=== PATIENT | male | born 1985 | race Hispanic/Latino ===

== ENCOUNTER 2018-03-19 02:42 | Emergency (ER) | payer OTHER ==
[~2018-03-19] VITALS: Ht 177.8 cm; Wt 70.0 kg
[~2018-03-19 02:42] MED LIST: VISTARIL25 MG OR
[2018-03-19] MEDS ORDERED: LORATADINE10 M1 PO (03:04)
[2018-03-19 04:30] VITALS: BP 95/56
== END 2018-03-19 04:40 | disposition designated cancer center or children's hospital (05) | DRG 605 ==
LOC: ED 02:42
PROC: 0HQCXZZ Repair Left Upper Arm Skin, External Approach (ICD-10-PCS; principal; 2018-03-19)
DX: S51.812A Laceration without foreign body of left forearm, initial encounter (principal); X78.8XXA Intentional self-harm by other sharp object, initial encounter; Y92.149 Unspecified place in prison as the place of occurrence of the external cause

== ENCOUNTER 2019-03-22 23:03 | Emergency (ER) | payer OTHER ==
[~2019-03-22] VITALS: Ht 177.8 cm; Wt 70.0 kg
[~2019-03-22 23:03] MED LIST changes: +LORATADINE10 M1 PO
[2019-03-22 23:28] LABS: HEMATOCRIT 31.7 % (39.0-50.0); HEMOGLOBIN 9.9 g/dl (14.0-18.0); IMMATURE GRANULOCYTES 0.3 % (0.0-5.0); MEAN CORPUSCULAR HGB 26.5 pG CALC (26.0-32.0); MEAN CORPUSCULAR HGB CONC 31.2 g/L CALC (32.0-36.0); NEUT# 3.81 thou/uL (1.82-7.42); RED BLOOD COUNT 3.74 mill/uL (4.70-6.10); RED CELL DISTRI WIDTH 14.6 % (11.5-15.5)
[2019-03-22 23:35] LABS: MEAN CELL VOLUME 84.8 fL CALC (80.0-100.0)
[2019-03-22 23:43] LABS: ALKALINE PHOSPHATASE 107 u/l (38-126); BUN 9 mg/dL (9-20); BUN/CREATININE RATIO 11 (12-20 (CALC)); CHLORIDE 107 mmol/l (95-108); CREATININE 0.8 mg/dL (0.7-1.3); GFR > 60 ML/MIN (>=60 (CALC)); GFR FOR AFR.AMER. > 60 ML/MIN (>=60 (CALC)); POTASSIUM 3.3 mmol/l (3.5-5.1); SGOT/AST 24 u/l (17-59); SODIUM 140 mmol/l (137-146); TOTAL PROTEIN 6.6 g/dL (6.3-8.2)
[2019-03-22 23:44] LABS: ANION GAP 17 (6-22 (CALC)); BILIRUBIN, TOTAL 0.3 mg/dL (0.0-1.4); CARBON DIOXIDE 19 mmol/l (22-30)
[2019-03-22] MEDS ORDERED: FERROUS SULF325 M2 PO (23:55)
[2019-03-22] MEDS ORDERED: DOCUSATE SOD100 M2 PO (23:57)
[2019-03-23] MEDS ORDERED: AMOXICILLIN500 MG PO (01:49)
[2019-03-23 02:21] VITALS: BP 108/61
== END 2019-03-23 02:21 | disposition designated cancer center or children's hospital (05) | DRG 605 ==
LOC: ED 23:03
PROVIDERS: Emergency Medicine
PROC: 0HQEXZZ Repair Left Lower Arm Skin, External Approach (ICD-10-PCS; principal; 2019-03-22)
PROC: 0HQDXZZ Repair Right Lower Arm Skin, External Approach (ICD-10-PCS; 2019-03-22)
DX: S51.812A Laceration without foreign body of left forearm, initial encounter (principal); S51.811A Laceration without foreign body of right forearm, initial encounter; F17.200 Nicotine dependence, unspecified, uncomplicated; X78.8XXA Intentional self-harm by other sharp object, initial encounter; Y92.149 Unspecified place in prison as the place of occurrence of the external cause

== ENCOUNTER 2019-04-14 22:53 | Emergency (ER) | payer OTHER ==
[~2019-04-14] VITALS: Ht 177.8 cm; Wt 70.0 kg
[~2019-04-14 22:53] MED LIST changes: +AMOXICILLIN500 MG PO; -LORATADINE10 M1 PO
[2019-04-15 00:17] VITALS: BP 100/56
== END 2019-04-15 00:17 | disposition designated cancer center or children's hospital (05) | DRG 605 ==
LOC: ED 22:53
PROC: 0HQDXZZ Repair Right Lower Arm Skin, External Approach (ICD-10-PCS; principal; 2019-04-14)
DX: S51.011A Laceration without foreign body of right elbow, initial encounter (principal); F17.200 Nicotine dependence, unspecified, uncomplicated; X78.8XXA Intentional self-harm by other sharp object, initial encounter; Y92.149 Unspecified place in prison as the place of occurrence of the external cause

== ENCOUNTER 2019-04-15 13:16 | Emergency (ER) | payer OTHER ==
[~2019-04-15] VITALS: Ht 177.8 cm; Wt 70.0 kg
[2019-04-15 13:30] VITALS: BP 120/76; BP 120/78
[2019-04-15 14:33] VITALS: BP 120/76
== END 2019-04-15 14:33 | DRG 605 ==
LOC: ED 13:16
PROC: 30233N1 Transfusion of Nonautologous Red Blood Cells into Peripheral Vein, Percutaneous Approach (ICD-10-PCS; principal; 2019-04-15)
PROC: 30233N1 Transfusion of Nonautologous Red Blood Cells into Peripheral Vein, Percutaneous Approach (ICD-10-PCS; 2019-04-15)
DX: S51.012A Laceration without foreign body of left elbow, initial encounter (principal); F32.9 Major depressive disorder, single episode, unspecified; X78.9XXA Intentional self-harm by unspecified sharp object, initial encounter; Y92.149 Unspecified place in prison as the place of occurrence of the external cause; Z91.5 Personal history of self-harm
CPT/HCPCS: P9016

== ENCOUNTER 2019-04-17 23:31 | Emergency (ER) | payer OTHER ==
[~2019-04-17] VITALS: Ht 177.8 cm; Wt 70.0 kg
[2019-04-17] MEDS ORDERED: FERROUS SULF325 M2 PO (23:43)
[2019-04-17] MEDS ORDERED: LORATADINE10 M1 PO (23:43)
[2019-04-17] MEDS ORDERED: DOCUSATE SOD100 M2 PO (23:44)
[2019-04-17] MEDS ORDERED: NORCO1 TA2 PO (23:45)
[2019-04-17] MEDS ORDERED: LEVAQUIN750 MG PO (23:46)
[2019-04-18 00:06] LABS: IMMATURE GRANULOCYTES 0.6 % (0.0-5.0); MEAN CELL VOLUME 85.1 fL CALC (80.0-100.0); MEAN CORPUSCULAR HGB 26.4 pG CALC (26.0-32.0); NEUT# 7.4 thou/uL (1.82-7.42); RED BLOOD COUNT 2.35 mill/uL (4.70-6.10); RED CELL DISTRI WIDTH 16.7 % (11.5-15.5)
[2019-04-18 00:08] LABS: HEMOGLOBIN 6.2 g/dl (14.0-18.0)
[2019-04-18 00:26] LABS: ALBUMIN 3.2 g/dL (3.2-5.0); ALKALINE PHOSPHATASE 107 u/l (38-126); ANION GAP 12 (6-22 (CALC)); BILIRUBIN, TOTAL 0.4 mg/dL (0.0-1.4); BUN 11 mg/dL (9-20); BUN/CREATININE RATIO 13 (12-20 (CALC)); CARBON DIOXIDE 26 mmol/l (22-30); CHLORIDE 102 mmol/l (95-108); CREATININE 0.9 mg/dL (0.7-1.3); GFR > 60 ML/MIN (>=60 (CALC)); GFR FOR AFR.AMER. > 60 ML/MIN (>=60 (CALC)); POTASSIUM 3.4 mmol/l (3.5-5.1); SGOT/AST 27 u/l (17-59); SODIUM 137 mmol/l (137-146); TOTAL PROTEIN 5.9 g/dL (6.3-8.2)
[2019-04-18 01:45] VITALS: BP 91/47
[2019-04-18 02:10] VITALS: BP 84/48
[2019-04-18 02:16] LABS: URINE BLOOD DIPSTICK TRACE-LYSED (NEGATIVE); URINE COLOR YELLOW; URINE GLUCOSE - DIPSTICK NEGATIVE (NEGATIVE); URINE KETONE TRACE mg/dL (NEGATIVE); URINE LEUK ESTERASE NEGATIVE (NEGATIVE); URINE NITRITE - DIPSTICK NEGATIVE (Negative); URINE PROTEIN - DIPSTICK NEGATIVE (NEG-TRACE); URINE SPECIFIC GRAVITY 1.015; URINE UROBILINOGEN - DIPSTICK 0.2 E.U./dL (0.2)
[2019-04-18 02:56] LABS: URINE BILIRUBIN - DIPSTICK SMALL (NEGATIVE)
[2019-04-18 03:10] VITALS: BP 98/57
[2019-04-18 03:47] VITALS: BP 99/60
== END 2019-04-18 04:00 | disposition designated cancer center or children's hospital (05) | DRG 812 ==
LOC: ED 23:31
PROVIDERS: Family Medicine
PROC: 30233N1 Transfusion of Nonautologous Red Blood Cells into Peripheral Vein, Percutaneous Approach (ICD-10-PCS; principal; 2019-04-18)
DX: D50.0 Iron deficiency anemia secondary to blood loss (chronic) (principal); R50.9 Fever, unspecified; K59.00 Constipation, unspecified; F32.9 Major depressive disorder, single episode, unspecified; S45.1 Injury of brachial artery; X78.9XXD Intentional self-harm by unspecified sharp object, subsequent encounter
CPT/HCPCS: J0131; P9016

== ENCOUNTER 2020-02-14 | Emergency (ER) | payer OTHER ==
[~2020-02-14] MED LIST changes: +DOCUSATE SOD100 M2 PO; +FERROUS SULF325 M2 PO; +LEVAQUIN750 MG PO; +LORATADINE10 M1 PO; +NORCO1 TA2 PO
[2020-02-14 01:24] LABS: HEMATOCRIT 23.7 % (39.0-50.0); IMMATURE GRANULOCYTES 0.4 % (0.0-5.0); MEAN CORPUSCULAR HGB 18.9 pG CALC (26.0-32.0); MEAN CORPUSCULAR HGB CONC 27.8 g/dL CAL (32.0-36.0); NEUT# 8.83 thou/uL (1.82-7.42); RED BLOOD COUNT 3.49 mill/uL (4.70-6.10); RED CELL DISTRI WIDTH 20.1 % (11.5-15.5)
[2020-02-14 01:25] LABS: HEMOGLOBIN 6.6 g/dl (14.0-18.0); MEAN CELL VOLUME 67.9 fL CALC (80.0-100.0)
[2020-02-14 01:48] LABS: ALBUMIN 3.6 g/dL (3.2-5.0); ALKALINE PHOSPHATASE 126 u/l (38-126); ANION GAP 18 (6-22 (CALC)); BILIRUBIN, TOTAL 0.2 mg/dL (0.0-1.4); BUN 8 mg/dL (9-20); BUN/CREATININE RATIO 8 (12-20 (CALC)); CHLORIDE 107 mmol/l (95-108); GFR > 60 ML/MIN (>=60 (CALC)); GFR FOR AFR.AMER. > 60 ML/MIN (>=60 (CALC)); POTASSIUM 3.4 mmol/l (3.5-5.1); SGOT/AST 28 u/l (17-59); SODIUM 140 mmol/l (137-146); TOTAL PROTEIN 6.9 g/dL (6.3-8.2)
[2020-02-14 01:53] LABS: ACT PARTIAL THROMBO TIME 19.2 SECONDS (20.0-32.5); CARBON DIOXIDE 18 mmol/l (22-30); INTERNATIONAL NORMALIZED RATIO 1.1 RATIO (0.7-1.3); PROTHROMBIN TIME 11.2 SECONDS (9.0-12.5)
--- NOTE | 2020-02-16 12:39 | NUR ---
Spoke with physician at [facility] ([phone]). Notified her of patient's Covid results. Faxed results to their secure fax [phone].
== END 2020-02-14 02:35 | DRG 605 ==
PROC: 30233N1 Transfusion of Nonautologous Red Blood Cells into Peripheral Vein, Percutaneous Approach (ICD-10-PCS; principal; 2020-02-14)
PROC: 30233N1 Transfusion of Nonautologous Red Blood Cells into Peripheral Vein, Percutaneous Approach (ICD-10-PCS; 2020-02-14)
DX: S51.812A Laceration without foreign body of left forearm, initial encounter (principal); F32.9 Major depressive disorder, single episode, unspecified; X78.9XXA Intentional self-harm by unspecified sharp object, initial encounter; Y92.149 Unspecified place in prison as the place of occurrence of the external cause; Z91.5 Personal history of self-harm; Z11.59 Encounter for screening for other viral diseases
CPT/HCPCS: P9016

== ENCOUNTER 2022-02-06 12:29 | Emergency (ER) | payer OTHER ==
[~2022-02-06] VITALS: Ht 177.8 cm; Wt 81.6 kg
[2022-02-06] VITALS (7 sets, daily range): BP systolic 112–133; BP diastolic 55–96
[2022-02-06 13:06] LABS: IMMATURE GRANULOCYTES 0.3 % (0.0-5.0); MEAN CORPUSCULAR HGB 26.9 pG CALC (26.0-32.0); MEAN CORPUSCULAR HGB CONC 30.9 g/dL CAL (32.0-36.0); NEUT# 5.83 thou/uL (1.82-7.42); RED BLOOD COUNT 3.46 mill/uL (4.70-6.10)
[2022-02-06 13:10] LABS: HEMATOCRIT 30.1 % (39.0-50.0); HEMOGLOBIN 9.3 g/dl (14.0-18.0)
[2022-02-06 13:25] LABS: ALBUMIN 3.1 g/dL (3.2-5.0); ALKALINE PHOSPHATASE 121 u/l (38-126); ANION GAP 15 (6-22 (CALC)); BILIRUBIN, TOTAL 0.2 mg/dL (0.0-1.4); BUN 13 mg/dL (9-20); BUN/CREATININE RATIO 14 (12-20 (CALC)); CARBON DIOXIDE 18 mmol/l (22-30); CHLORIDE 113 mmol/l (95-108); CREATININE 0.9 mg/dL (0.7-1.3); GFR > 60 ML/MIN (>=60 (CALC)); GFR FOR AFR.AMER. > 60 ML/MIN (>=60 (CALC)); SGOT/AST 39 u/l (17-59); SODIUM 141 mmol/l (137-146); TOTAL PROTEIN 5.6 g/dL (6.3-8.2)
== END 2022-02-06 14:00 | disposition short-term general hospital (02) | DRG 605 ==
LOC: ED 12:29
PROVIDERS: Internal Medicine
DX: S51.812A Laceration without foreign body of left forearm, initial encounter (principal); S55.912A Laceration of unspecified blood vessel at forearm level, left arm, initial encounter; F32.A Depression, unspecified; X78.9XXA Intentional self-harm by unspecified sharp object, initial encounter; Y92.149 Unspecified place in prison as the place of occurrence of the external cause
CPT/HCPCS: J2060

== ENCOUNTER 2023-11-22 18:56 | Emergency (ER) | payer OTHER ==
[~2023-11-22] VITALS: Ht 177.8 cm; Wt 80.0 kg
[2023-11-22] VITALS (13 sets, daily range): BP systolic 62–98; BP diastolic 32–59
[2023-11-22] MEDS ORDERED: SODIUM CHLORIDE 500 ML BTL IR ONE (19:00)
[2023-11-22] MEDS ORDERED: LIDOcaine HCl 1% (Local Anesth.) 20 ML VIAL IJ ONE (19:00)
[2023-11-22] MEDS ORDERED: Diph, Acellular Pertussis, Tet 0.5 ML/VIAL (Tdap) SDV IM ONE (19:00)
[2023-11-22] MEDS ORDERED: POVIDONE IODINE 0.5 OZ/BTL TOP ONE (19:00)
[2023-11-22] MEDS ORDERED: LACTATED RINGER'S 1,000 ML IV ONE ×2 (20:05)
[2023-11-22 20:12] LABS: BASO% 0.6 % (0-3); EOS% 1.4 % (0-8); HEMATOCRIT 41.6 % (39.0-50.0); IMMATURE GRANULOCYTES 0.4 % (0.0-5.0); LYMPH% 29.7 % (15-41); MEAN CELL VOLUME 86.8 fL CALC (80.0-100.0); MEAN CORPUSCULAR HGB 27.1 pG CALC (26.0-32.0); MEAN CORPUSCULAR HGB CONC 31.3 g/dL CAL (32.0-36.0); NEUT# 4.65 thou/uL (1.82-7.42); NEUT% 58.9 % (42-76); RED BLOOD COUNT 4.79 mill/uL (4.70-6.10); RED CELL DISTRI WIDTH 16.1 % (11.5-15.5)
== END 2023-11-22 21:08 | DRG 914 ==
LOC: ED 18:56
PROVIDERS: Family Medicine
PROC: 30233N1 Transfusion of Nonautologous Red Blood Cells into Peripheral Vein, Percutaneous Approach (ICD-10-PCS; principal; 2023-11-22)
DX: S55.012A Laceration of ulnar artery at forearm level, left arm, initial encounter (principal); S51.812A Laceration without foreign body of left forearm, initial encounter; X78.8XXA Intentional self-harm by other sharp object, initial encounter; Y92.149 Unspecified place in prison as the place of occurrence of the external cause
CPT/HCPCS: P9016